=== PATIENT | male | born 1955 | race Caucasian/White ===

== ENCOUNTER 2019-06-13 08:51 | Outpatient (CLI) | payer OTHER, SELFPAY ==
--- NOTE | ~2019-06-13 | CT_ITS ---
EXAMINATION: CTA chest DATE: 06/13/2019 09:32 INDICATION: Thoracic aortic aneurysm without rupture TECHNIQUE: Computed tomographic angiography (CTA) of the chest was performed with 100 mL Omnipque-350 intravenous contrast. Maximum intensity projection 3D-reconstructions of the aorta and other arterie s were constructed by the technologist on a separate workstation. The dose-length product (DLP) was 9 07.72 mGy-cm. Automated exposure control and iterative reconstruction technique were employed. COMPARISON: None. FINDINGS: There is a fusiform aneurysm of the ascending aorta which measures 4.6 x 4.5 cm at the leve l of the main pulmonary artery. There is no dissection. Changes of aortic valve replacement are noted . There is dependent atelectasis. No pleural effusion or pneumothorax is identified. Cardiomegaly is noted. There are no pathologically enlarged thoracic lymph nodes. There is moderate thoracic spondylo sis. There is a 4.1 x 3.7 cm mass left hepatic lobe. A 9 mm hypervascular mass seen right hepatic a c entimeter mass left adrenal gland with macroscopic fat consistent with a myelolipoma. There is a 6 mm nonobstructing stone of the right kidney IMPRESSION: 1. 4.6 cm fusiform aneurysm of the ascending aorta without dissection. 2. Incidentally noted liver masses as described above. In the absence of known malignancy or known he patic dysfunction, these are likely benign. Follow-up CT or MRI without and with contrast in six era hs is recommended. Reviewed, dictated and finalized at location B. IMPRESSION: 1. 4.6 cm fusiform aneurysm of the ascending aorta without dissection. 2. Incidentally noted liver masses as described above. In the absence of known malignancy or known hepatic dysfunction, these are likely benign. Follow-up CT or MRI without and with contrast in six months is recommended.
[2019-06-13 09:23] LABS: Estimated Glomerular Filt Rate > 60
== END 2019-06-13 08:52 | disposition home or self-care (01) ==
PROVIDERS: PCP Internal Medicine; Visit Provider Internal Medicine Cardiovascular Disease
DX: I71.2 Thoracic aortic aneurysm, without rupture (principal)
CPT/HCPCS: 36415; 71275; Q9967

== ENCOUNTER 2019-10-21 10:11 | Outpatient (CLI) | payer OTHER, SELFPAY ==
--- NOTE | ~2019-10-21 | MR_ITS ---
EXAMINATION: MR knee LT wo con DATE: 10/21/2019 11:03 INDICATION: Left knee pain TECHNIQUE: Magnetic resonance imaging (MRI) of the left knee was performed without intravenous contra st. Sequences included coronal PD-weighted FSE, coronal PD-weighted FS FSE, sagittal T2-weighted FSE , sagittal PD-weighted FS FSE and axial PD weighted fat saturated FSE. COMPARISON: None. FINDINGS: Medial compartment: Complex tear at the posterior horn of the medial meniscus which includes a full-thickness radial tear plane. Partial-thickness cartilage loss with deep chondral fissuring throughout the weightbearing me dial femoral condyle. Additional partial thickness cartilage loss with mild chondral surface regulari ty along the medial tibial plateau. There is suggestion of early remodeling along the posteromedial a spect of the medial tibial plateau with prominent associated marrow edema. There is additional marrow edema centered along a small region of flattening of the articular cortex at the junction of the ant erior to central weightbearing medial femoral condyle most likely representing additional chronic rem odeling with differential including an old osteochondral lesion or more acute impaction versus insuff iciency fracture. Lateral compartment: Lateral meniscus is normal. Small region of deep chondral fissuring without degenerative subchondral changes along the posterior margin of the lateral tibial plateau. Remainder of the cartilage in the l ateral compartment appears relatively preserved. Patellofemoral compartment: Partial-thickness cartilage loss with deep chondral fissuring along both the medial and lateral javier lar facets. Small region of underlying subarticular edema at the cephalad aspect of the patellar apic al ridge and along the superolateral margin of the lateral patellar facet. Deep chondral fissuring al salvatore the inferomedial aspect of the lateral trochlea and cephalad aspect of the trochlear groove. Ligaments and tendons: Anterior and posterior cruciate ligaments are normal. The medial collateral ligament and fibular abdelrahman ateral ligament complex are normal. Mild tendinopathy at the osseous attachments of the patellar and distal quadriceps tendons. The visualized medial and lateral hamstring tendons as well as the iliotib ial band are normal. Fluid: Small left knee joint effusion with moderate scattered synovitis. Nonspecific soft tissue edema about the knee. Small loculated fluid collection underlying the distal aspect of the medial collateral lig ament and the sartorius and gracilis tendons which could represent either a ganglion cyst, para menis aguila cyst or pes anserinus bursitis. Osseous/other: No pathologic marrow replacing process. IMPRESSION: 1. Complex full-thickness tear at the posterior horn of the medial meniscus. 2. Tricompartmental osteoarthritis, moderate severity with extensive high-grade chondromalacia in the medial compartment, mild with moderate to high-grade chondromalacia at the patellofemoral compartmen t and minimal with small region of moderate grade chondromalacia in the lateral compartment. 3. Prominent marrow edema at both sides of the medial compartment likely representing early osteoarth ritis related remodeling of the articular cortices with differential for a small region of cortical f lattening at the weightbearing medial femoral condyle also including chronic collapsed osteochondral lesion or more recent insufficiency versus impaction fracture. 4. Likely reactive small left knee joint effusion with mild to moderate synovitis. 5. Fluid deep to the medial collateral ligament and pes anserinus which could represent either a gang lion cyst, para meniscal cyst or pes anserinus bursitis. Reviewed, dictated and finalized at location A. Electronically signed by Brice Sanabria M.D. on 10/22
== END 2019-10-21 10:12 | disposition home or self-care (01) ==
PROVIDERS: PCP Internal Medicine; Visit Provider Nurse Practitioner Family
DX: M23.222 Derangement of posterior horn of medial meniscus due to old tear or injury, left knee (principal); M17.12 Unilateral primary osteoarthritis, left knee
CPT/HCPCS: 73721

== ENCOUNTER 2019-11-07 10:28 | Outpatient (CLI) | payer OTHER, SELFPAY ==
--- NOTE | ~2019-11-07 | US_ITS ---
EXAMINATION: US venous doppler LE EXAM DATE: 11/07/2019 11:19 INDICATION: Venous insufficiency, left knee swelling. TECHNIQUE: Multiple grayscale, color flow and Doppler images of the lower extremity deep venous syste ms bilaterally were obtained and reviewed. There is no prior study for comparison. FINDINGS: Right side: The right common femoral, femoral and profunda veins demonstrate normal color flow, respi ratory variation, augmentation and compressibility. Compressibility, color flow confirmed within the right popliteal, posterior tibial, peroneal, and greater saphenous veins. Left side: The left common femoral, femoral and profunda veins demonstrate normal color flow, respira tory variation, augmentation and compressibility. Compressibility, color flow confirmed within the l eft popliteal, posterior tibial, peroneal, and greater saphenous veins. IMPRESSION: 1. No lower extremity deep venous thrombosis bilaterally. Reviewed, dictated and finalized at location B.
== END 2019-11-07 10:29 | disposition home or self-care (01) ==
LOC: ANHIMG 10:34
PROVIDERS: PCP Internal Medicine; Visit Provider Orthopaedic Surgery
DX: I87.2 Venous insufficiency (chronic) (peripheral) (principal)
CPT/HCPCS: 93970

== ENCOUNTER 2019-11-14 09:59 | Outpatient (CLI) | payer OTHER, SELFPAY ==
--- NOTE | ~2019-11-14 | US_ITS ---
EXAMINATION: US venous doppler [facility] DATE: 11/14/2019 11:04 INDICATION: Chronic peripheral venous insufficiency TECHNIQUE: Grayscale ultrasound images without and with compression and Doppler ultrasound images of the bilateral lower extremity veins were obtained. COMPARISON: 11/07/2019 FINDINGS: Right lower extremity: Small amount of peripheral likely chronic nonocclusive thrombus at the right greater saphenous vein a t the distal calf. Right standing venous mapping: reflux seconds duration; vein size. Greater saphenous origin: 0 seconds; 6.8 mm. Greater saphenous proximal thigh: 0 seconds; 4.8 mm. Greater saphenous mid thigh:------- 4.5 seconds; 4.0 mm. Greater saphenous distal thigh:----- 4.0 seconds; 3.7 mm. Greater saphenous proximal calf:-- 0 seconds; 2.8 mm. Greater saphenous mid calf:--------- 0 seconds; 3.1 mm. Greater saphenous distal calf:------- 0 seconds; 3.2 mm. Lesser saphenous proximally:------ 0 seconds; 4.3 mm. Lesser saphenous mid : 0.5 seconds; 3.2 mm. Lesser saphenous distally: 2.0 seconds; 2.0 mm. Left standing venous mapping: reflux seconds duration; vein size. Greater saphenous origin: 0 seconds; 4.0 mm. Greater saphenous proximal thigh: 0 seconds; 3.2 mm. Greater saphenous mid thigh:------- >5 seconds; 5.1 mm. Greater saphenous distal thigh:----- 0 seconds; 2.8 mm. Greater saphenous proximal calf:-- 3 seconds; 2.7 mm. Greater saphenous mid calf:--------- 2 seconds; 3.1 mm. Greater saphenous distal calf:------- 2 seconds; 1.7 mm. Lesser saphenous proximally:------ 0 seconds; 0.2 mm. Lesser saphenous mid : 0 seconds; 1.5 mm. Lesser saphenous distally: 2 seconds; 2.2 mm. IMPRESSION: 1. Small amount of potentially chronic peripheral nonocclusive thrombus at the right greater sapheno us vein at the distal calf. 2. Significant reflux of >4 second duration in the greater saphenous veins at the bilateral thighs. Reviewed, dictated and finalized at location A. IMPRESSION: 1. Small amount of potentially chronic peripheral nonocclusive thrombus at the right greater saphenous vein at the distal calf. 2. Significant reflux of >4 second duration in the greater saphenous veins at the bilateral thighs.
== END 2019-11-14 10:00 | disposition home or self-care (01) ==
PROVIDERS: PCP Internal Medicine; Visit Provider Orthopaedic Surgery
DX: I87.2 Venous insufficiency (chronic) (peripheral) (principal)
CPT/HCPCS: 93970

== ENCOUNTER 2019-12-04 10:06 | Outpatient (CLI) | payer OTHER, SELFPAY ==
--- NOTE | ~2019-12-04 | CT_ITS ---
EXAMINATION: CT abdomen wo con DATE: 12/04/2019 10:26 INDICATION: TECHNIQUE: Computed tomography (CT) of the abdomen was performed without intravenous contrast. The do se-length product was 664.55 mGy-cm. Automated exposure control and iterative reconstruction technique were employed. COMPARISON: None. FINDINGS: Lung bases are unremarkable. Heart size normal. No significant pleural or pericardial effus ion. There is a left adrenal mass containing macroscopic fat measuring 2.8 cm consistent with adrenal myelolipoma. Gallbladder is contracted. The liver, spleen, pancreas, adrenal glands are unremarkable. There are nonobstructing bilateral venita l stones, largest in the right kidney measuring 7 mm. Normal appendix. No free air or free fluid. Non obstructive bowel gas pattern. There are parapelvic cysts of the left kidney. IMPRESSION: 1. Fat-containing left adrenal mass measuring 2.8 cm, consistent with adrenal myelolipoma. 2: Nonobstructing bilateral nephrolithiasis. Reviewed, dictated and finalized at location B. IMPRESSION: 1. Fat-containing left adrenal mass measuring 2.8 cm, consistent with adrenal m yelolipoma. 2: Nonobstructing bilateral nephrolithiasis.
== END 2019-12-04 10:07 | disposition home or self-care (01) ==
PROVIDERS: PCP Internal Medicine; Visit Provider Internal Medicine Cardiovascular Disease
DX: R16.0 Hepatomegaly, not elsewhere classified (principal); E27.8 Other specified disorders of adrenal gland; N20.0 Calculus of kidney
CPT/HCPCS: 74150

== ENCOUNTER 2020-02-21 09:58 | Outpatient (CLI) | payer OTHER, SELFPAY ==
--- NOTE | 2020-02-21 11:45 | NEURO_ITS ---
Impression: # Complains of right hand weakness. # Right ulnar neuropathy across the elbow. # Mild right Carpal Tunnel Syndrome. # Needle/EMG exam revealed neurogenic changes in 1st DI and Abd Dig Minn. Nerve Conduction Studies Anti Sensory Summary Table Stim Site NR Peak (ms) P-T Amp (?V) Site1 Site2 Delta-P (ms) Dist (cm) Herman (m/s) Right Median Anti Sensory (2-3nd Digit) Wrist 3.4 38.5 Wrist 2-3nd Digit 3.4 14.0 41 Wrist 3.5 15.4 Wrist 2-3nd Digit 3.4 14.0 41 Right Radial Anti Sensory (Base 1st Digit) Wrist 2.2 9.7 Wrist Base 1st Digit 2.2 0.0 Right Ulnar Anti Sensory Run #2 (5th Digit) Wrist 4.5 6.7 Wrist 5th Digit 4.5 14.0 31 Motor Summary Table Stim Site NR Onset (ms) O-P Amp (mV) Site1 Site2 Delta-0 (ms) Dist (cm) Herman (m/s) Right Median Motor (Abd Poll Brev) Wrist 4.5 1.7 Elbow Wrist 5.3 30.0 57 Elbow 9.8 1.8 Right Ulnar Motor (Abd Dig Minimi) Wrist 2.9 2.1 A Elbow Wrist 8.4 32.0 38 A Elbow 11.3 1.2 B Elbow Wrist 5.1 23.0 45 B Elbow 8.0 1.5 F Wave Studies NR F-Lat (ms) L-R F-Lat (ms) Right Median (Mrkrs) (Abd Poll Brev) 30.53 Right Ulnar (Mrkrs) (Abd Dig Min) 28.24 EMG Side Muscle Nerve Root Ins Act Fibs Amp Dur Recrt Comment Right 1stDorInt Ulnar C8-T1 Nml 1+ Nml >12ms Reduced Right ABD Dig Min Ulnar C8-T1 Incr 2+ Nml >12ms Reduced Right Ext Indicis Radial (Post Int) C7-8 Nml Nml Nml Nml Nml Right Ext Digitorum Radial (Post Int) C7-8 Nml Nml Nml Nml Nml Right PronatorTeres Median C6-7 Nml Nml Nml Nml Nml Right Abd Poll Brev Median C8-T1 Nml Nml Nml Nml Nml Right BrachioRad Radial C5-6 Nml Nml Nml Nml Nml MTDD
== END 2020-02-21 09:59 | disposition home or self-care (01) ==
PROVIDERS: PCP Internal Medicine; Visit Provider Internal Medicine
DX: G56.21 Lesion of ulnar nerve, right upper limb (principal); G56.01 Carpal tunnel syndrome, right upper limb
CPT/HCPCS: 95886; 95909

== ENCOUNTER 2020-03-19 12:20 | Outpatient (CLI) | payer OTHER, SELFPAY ==
--- NOTE | 2020-03-19 12:39 | ECHO_ITS ---
Patient Info Name: Emerson Rand Age: 65 years : 1955 Gender: Male Ht: 73 in Wt: 240 lbs BSA: 2.40 m2 HR: 64 bpm BP: 150 / 88 mmHg Technical Quality: Good Exam Date: 03/19/2020 12:50 PM Exam Location: [facility] Patient Status: Outpatient Admit Date: 03/19/2020 Staff Ordering Physician: Mik Nolan DO Distance Learning Administrator: Lei Sorenson RDCS, RT Attending Provider: Mik Nolan DO Referring Physician: Ovidio RIVERA; Exam Type: CA echo doppler color flow Study Info Indications R06.00 - Dyspnea, unspecified Complete two-dimensional, color flow and Doppler transthoracic echocardiogram is performed. Summary 1. Complete two-dimensional, color flow and Doppler transthoracic echocardiogram is performed. 2. Left ventricular chamber dimension is normal. 3. Left ventricular systolic function is normal, estimated at 55-60%. 4. There is moderately increased left ventricular wall thickness. 5. The left ventricular diastolic function is normal. 6. E/e' 7 is not elevated. 7. Left atrial chamber dimension is mildly enlarged. 8. Right atrial chamber dimension is mildly enlarged. 9. The bioprosthetic aortic valve is trileaflet. 10. There is mild sclerosis of the bioprosthetic aortic valve leaflets. 11. There is mild mitral valve regurgitation. 12. There is moderate tricuspid valve regurgitation. 13. No pulmonary hypertension, estimated pulmonary arterial systolic pressure is 34 mmHg. 14. There is trace pulmonic regurgitation. 15. The aortic root size at the sinus of Valsalva is mildly dilated at 4.4 cm. 16. The prox ascending aorta size is mildly dilated at 4.6 cm. Left Ventricle E/e' 7 is not elevated. Left ventricular chamber dimension is normal. Left ventricular systolic function is normal, estimated at 55-60%. There is moderately increased left ventricular wall thickness. The left ventricular diastolic function is normal. Right Ventricle Right ventricular chamber dimension is normal. Right ventricular systolic function is normal. Left Atria Left atrial chamber dimension is mildly enlarged. Right Atria Right atrial chamber dimension is mildly enlarged. Aortic Valve The bioprosthetic aortic valve is trileaflet. There is mild sclerosis of the bioprosthetic aortic valve leaflets. There is no bioprosthetic aortic valve stenosis. There is no regurgitation of the bioprosthetic aortic valve. Pulmonic Valve There is trace pulmonic regurgitation. Mitral Valve There is no mitral valve stenosis. There is mild mitral valve regurgitation. Tricuspid Valve There is moderate tricuspid valve regurgitation. No pulmonary hypertension, estimated pulmonary arterial systolic pressure is 34 mmHg. Pericardium/Pleural There is no pericardial effusion. Inferior Vena Cava Normal inferior vena cava with >50% collapse upon inspiration consistent with normal right atrial pressure, 5 mmHg. Aorta The aortic root size at the sinus of Valsalva is mildly dilated at 4.4 cm. The prox ascending aorta size is mildly dilated at 4.6 cm. Left Ventricular Outflow Tract Name Value Normal LVOT 2D LVOT Diameter 2.0 cm LVOT Doppler
== END 2020-03-19 12:21 | disposition home or self-care (01) ==
LOC: ANHCARD 12:21
PROVIDERS: PCP Internal Medicine; Visit Provider Internal Medicine Cardiovascular Disease
DX: I36.1 Nonrheumatic tricuspid (valve) insufficiency (principal); I34.0 Nonrheumatic mitral (valve) insufficiency; Z95.2 Presence of prosthetic heart valve
CPT/HCPCS: 93306

== ENCOUNTER 2021-09-01 14:31 | Outpatient (CLI) | payer MEDICARE, SELFPAY ==
--- NOTE | ~2021-09-01 | CT_ITS ---
EXAMINATION:CT diagnostic chest wo con DATE: 09/01/2021 15:10 INDICATION: Thoracic aortic aneurysm without rupture. TECHNIQUE: Computed tomography (CT) of the chest was performed without intravenous contrast. Automate d exposure control and iterative reconstruction technique were employed. The dose-length product (DLP ) was 446.62 mGy-cm. COMPARISON: Chest CT 06/13/2019 FINDINGS: The lungs demonstrate mild atelectasis. There are subpleural bands in the lower lobes. Ther e are a few chronic nodules in the lungs measuring up to 8 mm at right major fissure, likely benign. No pleural effusion. Cardiomegaly is noted. There are changes of aortic valve replacement. No pericar dial effusion. There is ectasia of ascending aorta measuring 4.6 cm. There is a stable 4.4 cm hypoatt enuated mass in left hepatic lobe, likely benign. There is mild bilateral gynecomastia. There is an o ld left rib fracture. There is mild chronic anterior wedging of multiple thoracic vertebral bodies. T here is moderate thoracic spondylosis. IMPRESSION: 1. Stable ectasia of ascending aorta measuring 4.6 cm. Reviewed, dictated and finalized at location B.
== END 2021-09-01 14:32 | disposition home or self-care (01) ==
PROVIDERS: PCP Internal Medicine; Visit Provider Internal Medicine Cardiovascular Disease
DX: I71.2 Thoracic aortic aneurysm, without rupture (principal)
CPT/HCPCS: 71250

== ENCOUNTER 2022-11-16 01:27 | Day surgery (SDC) | payer MEDICARE, SELFPAY ==
[2022-11-10 09:05] VITALS: BMI 36.6
--- NOTE | 2022-11-13 16:26 | PM.HPGS ---
History of Present Illness History of Present Illness Consent: Risks, benefits, and alternatives have been discussed and questions answered. Patient agrees to proceed with procedure. Chief complaint: other fecal abnormalities Narrative: Emerson Rand is a 67 year old male Referred for colon cancer screening. Recent Cologuard test was positive. Review of Systems Review of Systems: All systems reviewed & are unremarkable except as noted in HPI and below PMFSH Past Medical History Medical History Arthritis of knee, right Ascending aortic aneurysm Degenerative joint disease of knee Dizziness Dizziness MOLINA (dyspnea on exertion) Dyslipidemia Edema of both legs Effusion, left knee Essential hypertension Headache, migraine Hypersomnia Impingement syndrome, shoulder, left Non-rheumatic tricuspid valve insufficiency Nonspecific low back pain Obesity (BMI 30.0-34.9) Right knee pain Severe aortic regurgitation Sleep apnea Swelling of knee joint, right Tendonitis of left rotator cuff Transient atrial fibrillation Urinary frequency Surgical History Surgical History H/O excision of mass exc of skin cyst back 2 cm History of carpal tunnel release History of knee surgery Left TKA [address] Humphries Right TKA [address] Humphries Hx of aortic valve replacement S/P aortic valve replacement with bioprosthetic valve S/P AVR (aortic valve replacement) Family History Family History Father Hypertension Mother Diabetes mellitus Sibling Breast cancer Social History Social History Smoking status: Never smoker Alcohol intake: current Substance use: never Substance use type: does not use Living arrangements: with family Gender identity (if verbalized by the patient): Male Spiritual care concerns: No Meds Home Medications and Allergies Home Medications Medication Instructions Recorded Confirmed Type aspirin 81 mg tablet,delayed 81 mg PO DAILY 03/06/19 11/16/22 History release (Adult Low Dose Aspirin) finasteride 5 mg tablet 5 mg PO HS 06/06/19 11/16/22 History tamsulosin 0.4 mg capsule 0.4 mg PO HS 09/17/20 11/16/22 History potassium chloride 20 mEq 20 meq PO DAILY #30 tabs 02/19/22 11/16/22 Rx tablet,extended release(part/cryst) (Klor-Con M) metoprolol succinate 25 mg 12.5 mg PO DAILY #45 tabs 11/06/22 11/16/22 Rx tablet,extended release 24 hr pravastatin 40 mg tablet 40 mg PO QHS #90 tabs 11/06/22 11/16/22 Rx Allergies Allergy/AdvReac Type Severity Reaction Status Date / Time No Known Allergies Allergy Verified 11/16/22 11:10 Exam Const: General: alert Orientation/consciousness: patient oriented x3 Resp: Auscultation: clear to auscultation bilaterally Cardio: Rhythm: regular rhythm GI: GI Palp: Yes Soft to palpation and No Tenderness to palpation present (GI) Neuro: General: patient oriented x3 Assessment and Plan Assessment and plan (1) Colon cancer screening: Code(s): Z12.11 - Encounter for screening for malignant neoplasm of colon Status: Acute Assessment and Plan: Colonoscopy with possible biopsy or polypectomy or cautery or injection of substances.
[2022-11-16 11:13] VITALS: BP 141/86; PULSE 82; RESP 18; TEMP 36.3; O2SAT 98
[2022-11-16] MEDS: LACTATED RINGERS 1,000 ML 150 ML IV CONT (11:24)
[2022-11-16] MEDS: GENTAMICIN 80MG/SOD CHL 50 ML 80 MG/50 ML BAG 100 MG IVPB (11:25)
[2022-11-16] MEDS: AMPICILLIN 2 GM/NS 100 ML 2 GM/100 ML BAG IVPB (11:34)
--- NOTE | 2022-11-16 12:08 | WPDANESEPPF ---
Anes - Initial Pre Proc Eval Procedure: Operation Date: 11/16/22 12:30 Proposed Procedures p Colonoscopy - Emerson Capone MD Date/Time: 11/16/22 12:08 Surgeon: Emerson Capone MD Pre Op Diagnosis: other fecal abnormalities Patient Data Age: 67 Gender: M Height: 1.83 m Weight: 119.8 kg Last Vital Signs Temp 97.3 F L 11/16/22 11:13 Pulse 82 11/16/22 11:13 Resp 18 11/16/22 11:13 BP 141/86 H 11/16/22 11:13 Pulse Ox 98 11/16/22 11:13 O2 Del Method Room Air 11/16/22 11:13 Allergies Allergy/AdvReac Type Severity Reaction Status Date / Time No Known Allergies Allergy Verified 11/16/22 11:10 Home Medications Medication Instructions Recorded Confirmed Type aspirin 81 mg tablet,delayed 81 mg PO DAILY 03/06/19 11/16/22 History release (Adult Low Dose Aspirin) finasteride 5 mg tablet 5 mg PO HS 06/06/19 11/16/22 History tamsulosin 0.4 mg capsule 0.4 mg PO HS 09/17/20 11/16/22 History potassium chloride 20 mEq 20 meq PO DAILY #30 tabs 02/19/22 11/16/22 Rx tablet,extended release(part/cryst) (Klor-Con M) metoprolol succinate 25 mg 12.5 mg PO DAILY #45 tabs 11/06/22 11/16/22 Rx tablet,extended release 24 hr pravastatin 40 mg tablet 40 mg PO QHS #90 tabs 11/06/22 11/16/22 Rx Patient hx anesthesia problems: none Family hx anesthesia problems: none Results Review: All pre-operative results and documents have been reviewed as part of the pre-operative evaluation. [facility] Past Medical History Medical History Arthritis of knee, right Ascending aortic aneurysm Degenerative joint disease of knee Dizziness Dizziness MOLINA (dyspnea on exertion) Dyslipidemia Edema of both legs Effusion, left knee Essential hypertension Headache, migraine Hypersomnia Impingement syndrome, shoulder, left Non-rheumatic tricuspid valve insufficiency Nonspecific low back pain Obesity (BMI 30.0-34.9) Right knee pain Severe aortic regurgitation Sleep apnea Swelling of knee joint, right Tendonitis of left rotator cuff Transient atrial fibrillation Urinary frequency Surgical History Surgical History H/O excision of mass exc of skin cyst back 2 cm History of carpal tunnel release History of knee surgery Left TKA [address] Humphries Right TKA [address] Humphries Hx of aortic valve replacement S/P aortic valve replacement with bioprosthetic valve S/P AVR (aortic valve replacement) Family History Family History Father Hypertension Mother Diabetes mellitus Sibling Breast cancer Social History Social History Smoking status: Never smoker Alcohol intake: current Substance use: never Substance use type: does not use Living arrangements: with family Gender identity (if verbalized by the patient): Male Spiritual care concerns: No Anes - Eval Final PreProcedure Day of Procedure 11/16/22 12:08 Patient weight: obese Heart: regular rate and rhythm Lungs: clear to auscultation Airway: Mallampati scale class III Neurological: alert and oriented Last oral intake: >/= 8 hours ASA classification: III Emergent: no Anesthetic plan: proceed Anesthesia type and monitoring: general GIVS and standard monitoring Results Review: All pre-operative results and documents have been reviewed as part of the pre-operative evaluation. Informed Consent: The patient's anesthetic plan and its attendant risks and benefits were discussed with the patient/family/POA. Questions were solicited and answers provided to the satisfaction of the patient/family/POA.
[2022-11-16] MEDS: SIMETHICONE ORAL SUSPENSION 20 MG/0.3 ML 30 ML BOTTLE 0.6 ML IRRIGATION (12:36)
[2022-11-16 12:44] VITALS: BP 110/69; PULSE 74; RESP 22; O2SAT 98
[2022-11-16 12:54] VITALS: BP 110/73; PULSE 69; RESP 17; O2SAT 95
[2022-11-16 13:04] VITALS: BP 115/81; PULSE 63; RESP 19; O2SAT 97
== END 2022-11-16 13:35 | disposition home or self-care (01) ==
PROVIDERS: PCP Physician Assistant Medical; Visit Provider Internal Medicine Gastroenterology
PROC: 0DJD8ZZ Inspection of Lower Intestinal Tract, Via Natural or Artificial Opening Endoscopic (ICD-10-PCS; CPT 45378; principal; 2022-11-16 12:30)
DX: Z12.11 Encounter for screening for malignant neoplasm of colon (principal); R19.5 Other fecal abnormalities; K57.30 Diverticulosis of large intestine without perforation or abscess without bleeding; K64.8 Other hemorrhoids; D12.5 Benign neoplasm of sigmoid colon; I10 Essential (primary) hypertension
CPT/HCPCS: G0121; 88305; J0290; J1580; J2704; J7120

== ENCOUNTER 2024-08-30 10:57 | Outpatient (CLI) | payer MEDICARE, SELFPAY ==
--- NOTE | ~2024-08-30 | US_ITS ---
EXAMINATION:US venous doppler LE LT INDICATION:Left leg swelling TECHNIQUE: Multiple grayscale, color flow and Doppler images of the left lower extremity deep venous systems were obtained and reviewed. COMPARISON:No prior studies for comparison. FINDINGS: The common femoral, superficial femoral and popliteal veins demonstrate normal respiratory variation, augmentation and compressibility. Color flow is also seen within the posterior tibial, pe roneal, greater saphenous and profunda veins. IMPRESSION: 1: No lower extremity deep venous thrombosis. Reviewed, dictated and finalized at location B.
--- OUTSIDE RECORDS SUMMARY | 2024-08-30 13:02 | XMS_ITS | Clinical Summary ---
Author Organization [facility] Address [address] [place] [address] Care Team Providers Care Technical Support Engineer Name Role Phone Ari Humphries MD Unavailable [phone] John Brown MD Primary Care Provider [phone] Source Comments [facility],non-owned Affiliates and Associated Physician Practices is amultiple site organization consisting of ambulatory clinics and hospital sitesin [place], [place], [place] and [place]. This disclosure is being madepursuant to the Care Everywhere program and may not contain all information available regarding this patient. Last updated [facility] Allergies No known active allergies Medications * Be aware that medications may not be up to date on this document. Alwaysverify current medications with the patient. pravastatin (PRAVACHOL) 40 MG tablet Take 40 mg by mouth at bedtime Active finasteride (PROSCAR) 5 MG tablet Take 5 mg by mouth at bedtime Active tamsulosin (FLOMAX) 0.4 MG capsule 0.4 mg at bedtime 03/02/2020 Active metoprolol succinate XL 24hr (TOPROL XL) 25 MG tablet Take 12.5 mg by mouth once daily Active Active Problems Problem Noted Date Diagnosed Date Presence of left artificial knee joint 3 Preoperative examination 01/29/2022 Effusion of bursa of right knee 01/27/2022 Presence of right artificial knee joint 01/28/20 22 Primary osteoarthritis of both knees 12/05/2019 Immunizations Immunization Administration Dates Next Due famPlus primary monoval ent 12+ yr 0.3mL Purple cap 06/08/2020,05/18/2020 Social History Tobacco Use Types Packs/Day Years Used Date Smoking Tobacco: Never Smokeless Tobacco: Never Tobacco Cessation:Counseling Given: Not Answered Alcohol Use Standard Drinks/Week Comments Never 0 (1 standard drink = 0.6 oz pur e alcohol) AUDIT-C Answer Date Recorded Q1: How often do you have a drink containing alcohol? Monthly or less 01/29/2022 Q2: How many drinks containi ng alcohol do you have on a typical day when you are drinking? Patient does not drink Q3: How often do you have si x or more drinks on one occasion? Never 01/29/2022 Hunger Vital Sign Answer Date Recorded Within the past 12 months, y ou worried that your food would run out before you got the money to buy more. Never true 01/31/20 22 Within the past 12 months, t he food you bought just didn't last and you didn't have money to get more. Never true 01/30/2022 Sex and Gender Information Value Date Recorded Sex Assigned at Not on file Legal Sex Male 9:18 AM CDT Gender Identity Not on file Sexual Orientation Not on file Last Filed Vital Signs Vital Sign Reading Time Taken Comments Blood Pressure 122/63 02/12/2022 3:01 PM [facility] Pulse 86 02/12/2022 3:01 PM [facility] Temperature 36.8 C (98.2 F) 02/12/2022 12:43 PM [facility] Respiratory Rate 22 02/12/2022 3:01 PM [facility] Oxygen Saturation 94% 02/12/2022 3:01 PM [facility] Inhaled Oxygen Concentration - - Weight 117.9 kg (260 lb) 02/12/2022 12:43 PM [facility] Height 182.9 cm (6') 02/12/2022 12:43 PM [facility] Body Mass Index 35.26 02/12/2022 12:43 PM [facility] Plan of Treatment Health Maintenance Due Date Last Done Comments COLOGUARD (AGES 45-75) - COLON CA SCREENING 1956 COLON MONITORING 1956 COLONOSCOPY - COLON CA SCREENING 1956 CT COLONOGRAPHY - COLON CA SCREENING 1956 Colorectal Cancer Screening 1956 FIT - COLON CA SCREENING 1956 FLEX SIG - COLON CA SCREENING 1956 HEPATITIS C SCREENING 01/31/1974 DTAP/TDAP/TD VACCINES (1 - Tdap) 02/04/1975 PNEUMOCOCCAL VACCINE 50+ (1 of 1 - PCV) 02/04/2006 ZOSTER VACCINE (1 of 2) 02/04/2006 COVID-19 VACCINE (3 - season) 2023 06/08/2020, 05/18/2020 DEPRESSION SCREENING 03/22/2024 MEDICARE AWV CALENDAR YEAR 2024 INFLUENZA VACCINE (Season Ended) 2024 12/06/2020 SCREENING FOR DIABETES 03/09/2025 , 03/06/2022, 03/02/2022, Additional history exists Respiratory Syncytial Virus (RSV) Vaccine Pt: or over 60 yrs (1 - 1-dose 75+ series) 02/04/2031 HEPATITIS B VACCINE Aged Out No longe r eligible based on patient's age to complete this topic HIB VACCINE Aged Out No longer eligi ble based on patient's age to complete this topic HPV VACCINE Aged Out No longer eligi ble based on patient's age to complete this topic MENINGOCOCCAL (Group B) VACCINE SHARED DECISION-MAKING Aged Out No longer eligible based on patient's age to complete this topic MENINGOCOCCAL GROUPS A/C/Y/W VACCINE Aged Out No longer eligible based on patient's age to complete this topic Medical Devices Implanted Type Area Spinning Machine Operator Device Identifier Shelf Expiration Date Model / Serial / Lot Cmnt Bone Djo Srg Cblt 40gm Hvisc Strl Implanted:Qty: 1 on 04/17/2020 by Ari Humphries MD at [facility] Left: Knee [employer] 07/05/2020 600-15-000 / / [id number] Tray Tib 75mm Kn Cocr I Beam Implanted:Qty: 1 on 04/17/2020 by Ari Humphries MD at [facility] Left: Knee [employer] 10/23/2029 [id number] / / [id number] Cmpnt Fem Kn Lt Cr Cmnt Prm Vngrd Intlk Implanted:Qty: 1 on 04/17/2020 by Ari Humphries MD at [facility] Left: Knee [employer] 09/06/2029 [id number] / / [id number] Cmpnt Ptlr 31mm 1 Pg Wire Ascnt Arcm Kn Implanted:Qty: 1 on 04/17/2020 by Ari Humphries MD at [facility] Left: Knee [employer] 03/05/[id number] / / [id number] Brng [id number] Vngrd Arcm Kn Ant Stab Implanted:Qty: 1 on 04/17/2020 by Ari Humphries MD at [facility] Left: Knee [employer] 02/07/2025 [id number] / / [id number] Brng [id number] Vngrd Arcm Kn Ant Stab Implanted:Qty: 1 on 03/26/2021 by Ari Humphries MD at [facility] Right: Knee [employer] 05/24/2022 [id number] / / [id number] Cmnt Bone Djo Srg Cblt 40gm Hvisc Strl Implanted:Qty: 1 on 03/26/2021 by Ari Humphries MD at [facility] Right: Knee [employer] 05/10/2022 600-15-000 / / [id number] Cmpnt Fem Kn Rt Cr Cmnt Prm Vngrd Intlk Implanted:Qty: 1 on 03/26/2021 by Ari Humphries MD at [facility] Right: Knee [employer] 01/13/2031 [id number] / / [id number] Cmpnt Ptlr 28mm 1 Pg Wire Ascnt Arcm Kn Implanted:Qty: 1 on 03/26/2021 by Ari Humphries MD at [facility] Right: Knee [employer] 02/28/[id number] / / [id number] Tray Tib 75mm Kn Cocr I Beam Implanted:Qty: 1 on 03/26/2021 by Ari Humphries MD at [facility] Right: Knee [employer] 01/10/2031 [id number] / / [id number] Cmpnt Tibtry Kn Prm Lck Bar Bmt As Mx Implanted:Qty: 1 on 01/29/2022 by Ari Humphries MD at [facility] Right: Knee [employer] 12/28/2031 [id number] / / [id number] Brng [id number] Vngrd Arcm Kn Ant Stab Implanted:Qty: 1 on 01/29/2022 by Ari Humphries MD at [facility] Right: Knee [employer] 08/13/2026 [id number] / / [id number] Procedures Procedure Name Priority Date/Time Associated Diagnosis Comments COMPREHENSIVE METABOLIC PANEL Routine 03/09/2022 11:30 AM [facility] Prepatellar bursitis of right knee from Last 3 Months or Most Recently Relevant to Health Maintenance Results * (ABNORMAL) COMPREHENSIVE METABOLIC PANEL (03/09/2022 11:30 AM [facility]) Glucose 94 70 - 125 mg/dL 03/09/2022 12:00 PM [facility] Sodium 136 136 - 145 mmol/L 03/09/2022 12:00 PM [facility] Potassium 4.1 3.4 - 5.1 mmol/L 03/09/2022 12:00 PM [facility] Chloride 106 98 - 107 mmol/L 03/09/2022 12:00 PM [facility] CO2 25 22 - 29 mmol/L 03/09/2022 12:00 PM [facility] Calcium 8.6 8.4 - 10.2 mg/dL 03/09/2022 12:00 PM [facility] Anion Gap 9(L) 10 - 20 mmol/L 03/09/2022 12:00 PM [facility] BUN 17.3 8.4 - 25.7 mg/dL 03/09/2022 12:00 PM [facility] Creatinine 0.94 0.72 - 1.25 mg/dL 03/09/2022 12:00 PM [facility] eGFR by MDRD >60 >60 mL/min/1.7 3m2 03/09/2022 12:00 PM [facility] eGFR by MDRD >60 >60 mL/min/1.7 3m2 03/09/2022 12:00 PM [facility] Alkaline Phosphatase 80 40 - 150 U/L 03/09/2022 12:00 PM [facility] ALT 19 5 - 55 U/L 03/09/2022 12:00 PM [facility] AST 17 5 - 34 U/L 03/09/2022 12:00 PM [facility] Protein Total 6.0(L) 6.4 - 8.3 gm/dL 03/09/2022 12:00 PM [facility] Albumin 3.0(L) 3.5 - 5.0 gm/dL 03/09/2022 12:00 PM [facility] Globulin Total 3.0 2.6 - 4.0 gm/dL 03/09/2022 12:00 PM [facility] Albumin/Globulin Ratio 1.0 0.9 - 1.6 03/09/2022 12:00 PM [facility] Bilirubin Total 0.5 0.2 - 1.2 mg/dL 03/09/2022 12:00 PM [facility] Blood BLOOD SPECIMEN / Unknown Venipuncture / Unknown 03/09/2022 11:30 AM [facility] 03/09/2022 11:33 AM [facility] Wilian Freedman MD LAB - CHEMISTRY ORDERABLES Fi nal Result Performing Organization Address [facility]/State[facility] Co de Phone Number [facility] [address] from Last 3 Months or Most Recently Relevant to Health Maintenance Insurance [employer] MEDICARE ADV HMO & PPO [facility] Care Address: [address] [phone] Advance Directives * Full Code (Latest Code Status on File) Date Activated Date Inactivated Comments 01/29/2022 2:30 PM 02/03/2022 5:37 PM * Full Code Date Activated Date Inactivated Comments 03/26/2021 12:06 PM 03/27/2021 3:30 PM * Full Code Date Activated Date Inactivated Comments 04/17/2020 12:36 PM 04/18/2020 3:33 PM Care Teams Technical Support Engineer Relationship Specialty Start Date End Date John Brown MD [address] [place] [phone] PCP - General Family Medicine 01/30/22 [place] [id number] [address] Surgeon Orthopedic Surgery 12/05/19
== END 2024-08-30 10:58 | disposition home or self-care (01) ==
PROVIDERS: PCP Physician Assistant Medical; Visit Provider Internal Medicine Cardiovascular Disease
DX: R60.0 Localized edema (principal)
CPT/HCPCS: 93971